=== PATIENT | female | born 2000 | race African-American/Black ===

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

== ENCOUNTER 2021-06-12 19:45 | Emergency (ER) | payer OTHER ==
--- NOTE | 2021-06-12 21:05 | NUR ---
PT CALLED IN LOBBY NO ANSWER.
--- NOTE | 2021-06-12 21:10 | NUR ---
PT CALLED IN LOBBY AND OUTSIDE NO ANSWER.
--- NOTE | 2021-06-12 21:15 | NUR ---
PT CALLED ON PHONE NO ANSWER.
== END 2021-06-12 21:19 | disposition left against medical advice (07) ==
LOC: MED 19:45
DX: Z53.21 Procedure and treatment not carried out due to patient leaving prior to being seen by health care provider (principal)